=== PATIENT | male | born 1995 | race Caucasian/White ===

== ENCOUNTER → 2018-12-20 08:41 | Outpatient (CLI) | payer OTHER, SELFPAY ==
--- NOTE | 2018-12-20 | DI.MRI.S_ITS ---
PROCEDURE: MR SHOULDER LT W CON INDICATIONS: ROTATOR CUFF TEAR OF LFT SHOULDER TECHNIQUE: After the administration of 12 mL of dilute intra-articular Gadolinium contrast, oblique coronal T1 and T2 spin echo with fat saturation, oblique sagittal T1 spin echo with and without fat saturation, oblique sagittal T2 fast spin echo with fat saturation, axial T1 spin echo with fat saturation through the shoulder. COMPARISON: None. FINDINGS: Image quality: Diagnostic. Rotator cuff: No full-thickness or high-grade partial-thickness tear of the rotator cuff is identified. Increased signal involving the supraspinatus and infraspinatus tendons is identified. There is questionable partial-thickness tearing along the anterior distal supraspinatus tendon. The subscapularis and teres minor tendons are intact. No significant atrophy of the rotator cuff muscles is identified. Bones and bursae: No acute fracture, dislocation, or suspicious osseous lesion is identified involving the osseous structures of the left shoulder. No significant degenerative changes of the glenohumeral joint are present. There mild degenerative changes of the acromioclavicular joint with corresponding downsloping of the lateral acromion. There is adequate distention of the glenohumeral joint with the injected contrast. Small amount of this contrast is seen extending beyond the joint capsule within the soft tissues of the rotator interval, which may be iatrogenic. Contrast material is also seen extending along the anterior deltoid muscle. Capsule and soft tissues: There is a small posterosuperior labral tear extending from the 12 o'clock position to the 2 o'clock position. No detached fragments or large para labral cysts are evident. The long head of the biceps tendon is normally positioned within the bicipital groove and is otherwise intact and unremarkable. The superior and inferior glenohumeral ligaments are intact. 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 IMPRESSION: 1. Mild supraspinatus and infraspinatus tendinopathy without significant tearing. However, there is a questionable partial-thickness tear near the rotator interval of the supraspinatus tendon. 2. Mild degenerative changes of the acromioclavicular joint with corresponding lateral acromial downsloping. Please correlate clinically to exclude subacromial impingement. 3. Small posterosuperior labral tear. Dictated by: Parmjit Biggs M.D. on 12/20/2018 at 16:37 Approved by: Parmjit Biggs M.D. on 12/20/2018 at 16:39
--- NOTE | 2018-12-20 | DI.RAD.S_ITS ---
PROCEDURE: FL SHOULDER INJECTION MR/CT LT INDICATIONS: ROTATOR CUFF TEAR OF LFT SHOULDER TECHNIQUE: The indications, alternatives, benefits, risks, and complications of the procedure were explained to the patient. Written informed consent was obtained and placed in the chart. The shoulder was examined fluoroscopically and a site for needle placement chosen for entry into the glenohumeral joint from an anterior approach. The skin was prepped and draped in a sterile fashion, and 1% lidocaine infiltrated from skin down to joint capsule. A spinal needle was inserted into the glenohumeral joint, and a small amount of iodinated contrast media injected to confirm intra-articular placement of the needle tip. This was followed by approximately 12 mL dilute solution of a gadolinium containing MR contrast agent. The needle was removed and a dressing was applied. The patient was given postprocedural instructions and sent to the MR suite for MR imaging. FINDINGS: A single fluoroscopic spot image demonstrates intra-articular location of injected iodinated contrast. IMPRESSION: Successful fluoroscopically guided administration of dilute Gadolinium solution into the shoulder joint for MR arthrogram. Dictated by: Irais Couch M.D. on 12/20/2018 at 11:23 Approved by: Irais Couch M.D. on 12/20/2018 at 11:23
== END ==
PROVIDERS: Visit Provider Physician Assistant
DX: S43.492A Other sprain of left shoulder joint, initial encounter (principal)
CPT/HCPCS: 23350; 73222; 77002